=== PATIENT | female | born 1975 | race Caucasian/White ===

== ENCOUNTER 2019-12-03 01:15 | Emergency (ER) | payer BC ==
[2019-12-03] MEDS ORDERED: HYDROmorphone 1 MG/ML Syringe IM ONE (01:45)
--- NOTE | 2019-12-03 01:52 | EDM.PDOC ---
ED HPI GENERAL MEDICAL PROBLEM - General Chief Complaint: Abdominal Pain Stated Complaint: ABD PAIN Time Seen by Provider: 12/03/19 01:40 Source of Information: Reports: Patient, Family History Limitations: Reports: No Limitations - History of Present Illness INITIAL COMMENTS - FREE TEXT/NARRATIVE: 44-year-old female with right upper quadrant abdominal pain since after supper, total 6 hours ago. Pain is persistent, worse when laying down, radiating around to her back and causing mild nausea but no vomiting. No chills, no diarrhea. She has not had pain like this in the past. Only surgical history is a C- section. A small amount of increased pain with breathing. 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: Musculoskeletal History: Reports: Back Pain, Chronic - Infectious Disease History Infectious Disease History: Reports: Chicken Pox - Past Surgical History Head Surgeries/Procedures: Reports: None HEENT Surgical History: Reports: None Musculoskeletal Surgical History: Reports: Other (See Below) Other Musculoskeletal Surgeries/Procedures:: toe Dermatological Surgical History: Reports: None Social & Family History - Tobacco Use Smoking Status *Q: Current Every Day Smoker Years of Tobacco use: 25 Packs/Tins Daily: 0.5 Used Tobacco, but Quit: No - Caffeine Use Caffeine Use: Reports: Coffee - Recreational Drug Use Recreational Drug Use: No ED ROS GENERAL - Review of Systems Review Of Systems: See Below Constitutional: Reports: Malaise. Denies: Fever, Chills HEENT: Reports: No Symptoms Respiratory: Denies: Shortness of Breath Cardiovascular: Denies: Chest Pain GI/Abdominal: Reports: Abdominal Pain, Nausea. Denies: Constipation, Diarrhea, Vomiting Skin: Reports: No Symptoms Neurological: Reports: No Symptoms Psychiatric: Reports: No Symptoms ED EXAM, GI/ABD - Physical Exam Exam: See Below Exam Limited By: No Limitations General Appearance: Alert, Moderate Distress Eyes: Bilateral: Normal Appearance (No jaundice) Respiratory/Chest: No Respiratory Distress, Lungs Clear Cardiovascular: Regular Rate, Rhythm GI/Abdominal Exam: Soft, Guarding, Tender, Other (Extremely tender with positive Mccullough sign in the right upper quadrant) Neurological: Alert, Oriented Psychiatric: Anxious Skin Exam: Warm, Dry Course - Vital Signs Last Recorded V/S: Last Vital Signs Temp 97.7 F 12/03/19 01:34 Pulse 104 H 12/03/19 01:34 Resp 18 12/03/19 01:34 BP 119/79 12/03/19 01:34 Pulse Ox 100 12/03/19 01:34 - Orders/Labs/Meds Labs: Laboratory Tests 12/03/19 12/03/19 Range/Units 01:54 01:54 WBC 9.0 (4.5-11.0) K/uL RBC 4.75 (3.30-5.50) M/uL Hgb 14.1 (12.0-15.0) g/dL Hct 43.5 (36.0-48.0) % MCV 92 (80-98) fL MCH 30 (27-31) pg MCHC 32 (32-36) % Plt Count 349 (150-400) K/uL Neut % (Auto) 58 (36-66) % Lymph % (Auto) 34 (24-44) % Bremer % (Auto) 5 (2-6) % Eos % (Auto) 3 (2-4) % Baso % (Auto) 1 (0-1) % Sodium 138 L (140-148) mmol/L Potassium 4.6 (3.6-5.2) mmol/L Chloride 102 (100-108) mmol/L Carbon Dioxide 25 (21-32) mmol/L Anion Gap 15.6 H (5.0-14.0) mmol/L BUN 15 (7-18) mg/dL Creatinine 1.1 H (0.6-1.0) mg/dL Est Cr Clr Drug Dosing 68.21 mL/min Estimated GFR (MDRD) 54 L (>60) Glucose 118 H (74-106) mg/dL Calcium 10.5 H (8.5-10.1) mg/dL Total Bilirubin 0.2 (0.2-1.0) mg/dL AST 14 L (15-37) U/L ALT 32 (12-78) U/L Alkaline Phosphatase 80 (46-116) U/L Total Protein 7.8 (6.4-8.2) g/dL Albumin 3.6 (3.4-5.0) g/dL Globulin 4.2 H (2.3-3.5) g/dL Albumin/Globulin Ratio 0.9 L (1.2-2.2) Lipase 81 (73-393) U/L Meds: Medications Discontinued Medications Generic Name Dose Route Start Last Admin Trade Name Freq PRN Reason Stop Dose Admin Hydromorphone HCl 2 mg 12/03/19 01:45 12/03/19 01:50 Dilaudid IM 12/03/19 01:46 2 mg ONETIME ONE Administration - Re-Assessments/Exams Free Text/Narrative Re-Assessment/Exam: 12/03/19 01:51 Bedside ultrasound revealed dependent stones in the gallbladder in the neck. Gallbladder wall looked normal. 2 mg of IM Dilaudid were given, CBC CMP and lipase were drawn and if the labs are normal and her pain resolves she may be able to get this taken care of on an elective basis. 12/03/19 02:28 White count, liver enzymes, lipase labs are normal and patient's pain almost totally resolved by discharge. No need for acute hospitalization or surgical consultation at this time, but she will recheck when she is home for formal ultrasound. Departure - Departure Time of Disposition: 02:37 Disposition: Home, Self-Care 01 Clinical Impression: Abdominal pain Qualifiers: Abdominal location: right upper quadrant Qualified Code(s): R10.11 - Right upper quadrant pain Cholelithiasis Qualifiers: Cholelithiasis location: gallbladder Cholecystitis presence: without cholecystitis Biliary obstruction: without biliary obstruction Qualified Code(s): K80.20 - Calculus of gallbladder without cholecystitis without obstruction - Discharge Information Instructions: Cholelithiasis, [id number] Referrals: PCP,None [Primary Care Provider] - Forms: ED Department Discharge Care Plan Goals: A bland diet for the rest of the weekend, fluids, and anti-inflammatories such as ibuprofen or naproxen may be helpful for any recurring pain. Return if worsening such as fevers, persistent pain or nausea and vomiting. Otherwise r echeck when home for a formal ultrasound. Sepsis Event Note (ED) - Evaluation Sepsis Screening Result: No Definite Risk - Focused Exam Vital Signs: Vital Signs Temp Pulse Resp BP Pulse Ox 12/03/19 01:34 97.7 F 104 H 18 119/79 100 12/03/19 01:30 97.7 F 104 H 18 119/79 100
== END 2019-12-03 02:36 | disposition home or self-care (01) ==
LOC: JP.ED 01:15
DX: K80.20 Calculus of gallbladder without cholecystitis without obstruction (principal); F17.210 Nicotine dependence, cigarettes, uncomplicated; Z88.0 Allergy status to penicillin
CPT/HCPCS: 36415; 80053; 83690; 85025; 96372; 99284; J1170; 99283